=== PATIENT | female | born 1935 | race Caucasian/White ===

== ENCOUNTER 2016-06-25 17:46 | Emergency (ER) | payer OTHER ==
[~2016-06-25 17:46] MED LIST: ACETAMINOPHEN PO; AMLODIPINE BESYL5 MG PO; ASPIRIN PO; CALCIUM 500 + D1 TAB PO; CERTAGEN PO; FLOMAX0.4 MG PO; LOPRESSOR PO; PLAVIX PO; PROTONIX PO; VICODIN 5/500 T1 TAB PO; VICODIN PO
== END 2016-06-25 18:11 | disposition home or self-care (01) ==
LOC: SED 17:46
DX: S51.011A Laceration without foreign body of right elbow, initial encounter (principal); S80.02XA Contusion of left knee, initial encounter; I10 Essential (primary) hypertension; W10.9XXA Fall (on) (from) unspecified stairs and steps, initial encounter; Y92.511 Restaurant or cafe as the place of occurrence of the external cause
CPT/HCPCS: 99283